=== PATIENT | female | born 1985 | race Caucasian/White ===

== ENCOUNTER 2018-08-11 15:45 | Emergency (ER) | payer OTHER ==
[~2018-08-11 15:45] MED LIST: Iopamidol 370 76% 100 ML VIAL ONE
[2018-08-11 16:23] LABS: #Basophils 0.1 thou/uL (0.0-0.2); #Eosinphils 0.2 thou/uL (0.0-0.7); #Monocytes 0.7 thou/uL (0.11-0.59); %Basophils 0.7 % (0.0-1.0); %Eosinophils 1.5 % (0.0-10.0); %Lymphocytes 40.3 % (21.0-51.0); %Monocytes 7.5 % (0.0-10.0); Hemoglobin 13.4 g/dL (12.0-16.0); Mean Corpuscular HGB CONC 33.6 g/dL (32.0-36.0); Mean Corpuscular Hemoglobin 28.8 pg (27.0-31.0); Mean Corpuscular Volume 85.7 fL (78.0-98.0); Mean Platelet Volume 8.2 fL (7.4-10.4); Platelet Count 401 thou/uL (130-400); RBC Distribution Width 11.6 % (11.5-14.5); Red Blood Cell (RBC) Count 4.67 mill/uL (4.20-5.40)
[2018-08-11 16:42] LABS: ALT (SGPT) 23 U/L (8-55); AST (SGOT) 23 U/L (5-34); Albumin 4.7 g/dL (3.5-5.0); Alkaline Phosphatase 96 U/L (40-150); Anion Gap 19 mmol/L (10-20); BUN (Urea Nitrogen) 10 mg/dL (7.0-18.7); Bilirubin, Total 0.3 mg/dL (0.2-1.2); CK (CPK) 125 U/L (29-168); Calc. Creatinine Clearance 0 mL/min (70-130); Calcium 10.2 mg/dL (7.8-10.44); Carbon Dioxide 20 mmol/L (22-29); Chloride 103 mmol/L (98-107); Estimated GFR-MDRD 86; Globulin 3.4 g/dL (2.4-3.5); Glucose 111 mg/dL (70-105); Potassium 3.8 mmol/L (3.5-5.1); Protein, Total 8.1 g/dL (6.0-8.3); Sodium 138 mmol/L (136-145)
[2018-08-11] MEDS ORDERED: Ondansetron PF 4 MG/2 ML Vial ONE (16:50)
--- NOTE | 2018-08-11 17:17 | RAD ---
FRONTAL VIEW CHEST: Date: 08/11/18 INDICATION: Chest pain. No prior comparison. FINDINGS: Lungs are clear. Cardiac silhouette is normal in size. No effusion or pneumothorax. Osseous structure s are unremarkable. IMPRESSION: No focal consolidation. POS: C
[2018-08-11 18:52] LABS: BHCG - Serum Negative (NEGATIVE); Pregs Control Background? CLEAR/WHITE (CLR/WHITE); Pregs Control Bar Appear? YES (CONTROL BAR)
--- NOTE | 2018-08-11 19:58 | CT ---
CTA AORTIC DISSECTION PROTOCOL WITH IV CONTRAST AND 3D REFORMATTED IMAGING: HISTORY: History of chest pain, mitral valve prolapse, and gastroesophageal reflux disease. COMPARISON: None. FINDINGS: No aortic stenosis, occlusion, or aneurysmal formation is evident. No definite central pulmonary emb olus is evident. No acute air space opacity, pleural effusion, or pneumothorax is evident. No definite acute abnormality is seen involving the abdomen. No free fluid or enlarged lymph nodes a re evident. No definite acute osseous abnormality is evident. IMPRESSION: No evidence of aortic stenosis, occlusion, or aneurysmal formation. POS: SELENE
--- NOTE | 2018-08-16 14:06 | EKG ---
Test Reason : Blood Pressure : / mmHG Vent. Rate : 090 BPM Atrial Rate : 090 BPM P-R Int : 134 ms QRS Dur : 078 ms QT Int : 348 ms P-R-T Axes : 067 050 037 degrees QTc Int : 425 ms Normal sinus rhythm Possible Left atrial enlargement Borderline ECG Confirmed by JED Styles, DAVID ([id number]), medical transcription editor DANDY AVILEZ ([id number] on 08/16/2018 2:04:55 PM Referred By: Confirmed By:DAVID ADKINS M.D.
== END 2018-08-11 19:50 | disposition home or self-care (01) ==
LOC: ERS 15:45
DX: R07.9 Chest pain, unspecified (principal); K21.9 Gastro-esophageal reflux disease without esophagitis; F41.9 Anxiety disorder, unspecified; I34.1 Nonrheumatic mitral (valve) prolapse
CPT/HCPCS: 36415; 71045; 71275; 80053; 82550; 84484; 84703; 85025; 85379; 93005; 94760; 96361; 96374; J2405; Q9967